=== PATIENT | male | born 1975 | race Caucasian/White ===

== ENCOUNTER 2017-02-08 22:01 | Emergency (ER) | payer OTHER ==
--- NOTE | 2017-02-08 23:40 | DIAGNOSTIC IMAGING REPORT ---
PROCEDURE: XR LUMBAR SPINE 2 OR 3 VIEWS INDICATION: TRAUMA/INJURY TECHNIQUE: Three views. COMPARISON: None. FINDINGS: Mild degenerative changes of the lower lumbar facet joints. Osseous structures and disc spaces are otherwise normal. No evidence of an acute process or fracture. IMPRESSION: 1. Mild degenerative changes. 2. Otherwise negative lumbar spine.
--- NOTE | 2017-02-08 23:40 | DIAGNOSTIC IMAGING REPORT ---
PROCEDURE: XR HIP 2VW W W/O AP PELVIS-LT INDICATION: Pain. TECHNIQUE: AP view of the pelvis and hips with lateral view of the left hip. COMPARISON: None. FINDINGS: LEFT HIP: Mild degenerative changes of the left hip joint with small peripheral osteophytes. PELVIS: Pelvis and right hip are normal. IMPRESSION: 1. Mild degenerative changes of the left hip joint. 2. Negative pelvis.
--- NOTE | 2017-02-09 00:04 | ED ORDER SUMMARY ---
..... Patient: RUDDY ARCINIEGA OrderSheet [facility] VisitID: [id number] [place] [address] 41y, M Registration Date/Time: 02/08/2017 ORDER SHEET Weight: 104.3 kg (stated) Allergies: Amoxicillin GENERAL ORDERS: Lumbar Spine 2 or 3V Urgent (23:02/08/2017 Marilee Caldwell) (Ack 23:02 [facility] Technician) (23:21 RFay) Hip 2V Left w AP Pelvis Urgent (23:02/08/2017 Marilee Caldwell) (Ack 23:02 [facility] Technician) (23:21 RFay) MEDICATION ORDERS: Percocet PO 5/325 mg (HIGH ALERT MEDICATION, NOW) (23:02/08/2017 Marilee Caldwell) (Ack 23:11 JQuivey R.N.) (23:27 JQuivey R.N.) IV FLUIDS: ORDER SHEET NOTES: [Electronically signed by Fercho Chen R.N. (00:20 02/09/2017)] [Electronically signed by Adair Morton Dr. (15:56 02/11/2017)] [Electronically locked/signed by Fercho Chen R.N. (00:20 02/09/2017)]
--- NOTE | 2017-02-09 00:04 | ED NURSING NOTES ---
Clinical Report - Nurses [facility] [address] [place] [address] 02/08/2017 22:02 Patient: RUDDY ARCINIEGA TRIAGE Triage time 22:37. Acuity: LEVEL 4. 22:43. Alert. SEPSIS SCREEN: Sepsis Screen. Negative (no infection suspected/documented). --22:43 Fercho Chen R.N. 22:37 02/08/17. BP: 139/93. HR: 95. RR: 16. O2 saturation: 99%. Temp: 97.9 F (oral). --22:43 Fercho Chen R.N. Chief Complaint: (Back pain). --00:19 Fercho Chen R.N. Weight: 104.3 kg stated. Height/Length: 68 inches Per Patient. BMI: 35. --22:43 Fercho Chen R.N. Medications ALPRAZolam Oral 0.5 mg, as needed. --22:42 Fercho Cehn R.N. Medication/allergy information source: the patient. --22:43 Fercho Chen R.N. Allergies Amoxicillin. --22:41 Fercho Chen R.N. History Arrived by private vehicle, and unaccompanied. Location of injuries: back, left buttock and left hip. This occurred (about 1030 THIS MORNING). ( Patient states he was running landed on his left foot when leaping off curb and felt a sudden pain in his left hip that moved in to his mid lower back). Trauma activation: Pre-hospital notification of patient arrival was not received. PAST MEDICAL HX: Tetanus status: up-to-date. Immunizations: up-to-date. SOCIAL HX: Never smoker. History of occasional drug use: marijuana. No alcohol use. No infectious disease exposure. ABUSE ASSESSMENT: No report of abuse. FALL RISK ASSESSMENT: Fall risk assessment completed. No fall risk identified. NUTRITIONAL RISK ASSESSMENT: The nutritional risk assessment revealed no deficiencies. FUNCTIONAL ASSESSMENT: Functional assessment: no impairments noted. LEARNING NEEDS ASSESSMENT: The learning needs assessment revealed no barriers. SKIN INTEGRITY ASSESSMENT: Skin integrity risk assessment completed. No skin integrity risk identified. --22:43 Fercho Chen R.N. PROBLEMS: no known problems. ADDITIONAL SURGERIES: Hip Surgery. --22:42 Fercho Chen R.N. Interventions ID band on patient. To treatment room. --22:43 Fercho Chen R.N. PHYSICAL ASSESSMENT 22:44. Ambulatory to room. GENERAL / NEURO / PSYCH: Alert. Oriented X 4. RESPIRATORY: Respirations not labored. EXTREMITIES: Neuro-vascular status intact to the extremity. SKIN: Skin intact. Skin is warm and dry. --22:44 Fercho Chen R.N. NURSING PROGRESS NOTES 22:44. Two patient identifiers checked. Call light placed in reach. Bed placed in lowest position. Brakes of bed on. Patient ready for evaluation- chart flagged. --22:44 Fercho Chen R.N. 23:09. Patient transported to radiology by stretcher with tech. --23:14 Fercho Chen R.N. 23:27 02/08/2017 Percocet (Oxycodone-Acetaminophen) PO 5/325 mg Tablets 1 tab given. Allergies verified, confirmed 5 rights and sedative warning given to the patient. --23:27 Fercho Chen R.N. 23:23. Patient returned from radiology by stretcher with tech. --23:27 Fercho Chen R.N. 00:11 02/09/2017 Percocet (Oxycodone-Acetaminophen) PO 5/325 mg Tablets 1 tab given. Allergies verified, confirmed 5 rights and sedative warning given to the patient. (per Dr. Morton verbal order). --00:12 Fercho Chen R.N. 00:14 Patient 's spouse at bedside. The patient is calm and resting quietly. Overall patient status is improved- he states feels better. GENERAL / NEURO / PSYCH: Alert. Oriented X 4. RESPIRATORY: No respiratory distress. SKIN: Skin is warm and dry. --00:18 Fercho Chen R.N. DISPOSITION / DISCHARGE Departure time: 00:17. Condition at departure: stable. No learning barriers present. Discharge instructions provided and reviewed with the patient and spouse. Reviewed medication(s) side effects, precautions, dosing and course information. Prescription(s) given to the patient. Patient and spouse verbalized understanding. Written instructions provided in Ukrainian. The patient was discharged home and accompanied by spouse. He left the Emergency Department ambulatory and via private vehicle. Spouse driving. FALL RISK ASSESSMENT: Fall risk assessment completed. No fall risk identified. --00:17 Fercho Chen R.N. 00:10 02/09/17. BP: 110/66. HR: 81. RR: 16. O2 saturation: 95% on room air. Pain level now: 01/08. --00:17 Fercho Chen R.N. Locked/Released at 02/09/2017 0:20 by Fercho Chen R.N.
--- NOTE | 2017-02-09 00:04 | ED ORDER SUMMARY ---
..... Patient: RUDDY ARCINIEGA OrderSheet [facility] VisitID: [id number] [place] [address] 41y, M Registration Date/Time: 02/08/2017 ORDER SHEET Weight: 104.3 kg (stated) Allergies: Amoxicillin GENERAL ORDERS: Lumbar Spine 2 or 3V Urgent (23:02/08/2017 Marilee Caldwell) (Ack 23:02 [facility] Dam[facility] Worker) (23:21 RFay) Hip 2V Left w AP Pelvis Urgent (23:02/08/2017 Marilee Caldwell) (Ack 23:02 [facility] Worker) (23:21 RFay) MEDICATION ORDERS: Percocet PO 5/325 mg (HIGH ALERT MEDICATION, NOW) (23:02/08/2017 Marilee Caldwell) (Ack 23:11 JQuivey R.N.) (23:27 JQuivey R.N.) IV FLUIDS: ORDER SHEET NOTES: [Electronically signed by Fercho Chen R.N. (00:20 02/09/2017)] [Electronically signed by Adair Morton Dr. (15:56 02/11/2017)] [Electronically locked/signed by Fercho Chen R.N. (00:20 02/09/2017)]
--- NOTE | 2017-02-09 00:04 | ED CLINICAL REPORT ---
Clinical Report - Physicians/Mid Levels [facility] [address] [place] [address] 02/08/2017 22:02 Patient: RUDDY ARCINIEGA Time Seen: 2251. Arrived- By private vehicle. Historian- patient. HISTORY OF PRESENT ILLNESS Chief Complaint: BACK PAIN. Modifying factors- worsened by bending over. Relieved by sitting. Onset was today and it is still present. It was abrupt in onset and has been constant but is not gone now. It is described as being moderate in degree. The quality is noted to be sharp and aching. No radiation. No bladder dysfunction, bowel dysfunction, sensory loss or motor loss. Additional history - no fever, no urinary retention, no hx of IV drug use. Patient notes the possibility of an injury but denies injury to the head or neck. Mechanism of injury- (stepping off curb). (work). No other injury. Similar symptoms previously: None. Recent medical care: Not recently seen/assessed. REVIEW OF SYSTEMS All systems otherwise negative, except as recorded above. PAST HISTORY See nurses notes. Problems: no known problems. Medications: ALPRAZolam Oral 0.5 mg, as needed. Allergies: Amoxicillin. SOCIAL HISTORY Never smoker. History of occasional drug use: marijuana. No alcohol use. No recent travel. Is a local resident. PHYSICAL EXAM Appearance: Alert. Patient in mild distress. (non-toxic). HEENT: Normal external inspection. Eyes: Pupils equal, round and reactive to light. ENT: Ears normal. Pharynx normal. Neck: Normal inspection. Neck nontender. No muscle spasm or decreased ROM in the neck. Painless ROM. No vertebral tenderness. No lymphadenopathy. CVS: Heart sounds normal. Pulses normal. Respiratory: No respiratory distress. Breath sounds normal. Abdomen: No visible injury. Soft and nontender. Bowel sounds normal. Mass present. Back: Normal inspection. (bilateral lower paraspinal muscle tenderness. Mild midline tenderness without crepitus, step offs, or myrna abnormalities.). Skin: Skin warm and dry. Normal skin color. No rash. Normal skin turgor. Extremities: Extremities exhibit normal ROM. Extremities nontender. Neuro: Mood/affect normal. No motor deficit. No sensory deficit. Reflexes normal. (normal gait). LABS, X-RAYS, AND EKG LS-Spine X-rays: (PROCEDURE: XR LUMBAR SPINE 2 OR 3 VIEWS INDICATION: TRAUMA/INJURY TECHNIQUE: Three views. COMPARISON: None. FINDINGS: Mild degenerative changes of the lower lumbar facet joints. Osseous structures and disc spaces are otherwise normal. No evidence of an acute process or fracture. IMPRESSION: 1. Mild degenerative changes. 2. Otherwise negative lumbar spine.). The X-rays were independently viewed by me and interpreted by the radiologist. The X-rays were discussed with the radiologist (via pacs). Lt Hip X-ray: (PROCEDURE: XR HIP 2VW W W/O AP PELVIS-LT INDICATION: Pain. TECHNIQUE: AP view of the pelvis and hips with lateral view of the left hip. COMPARISON: None. FINDINGS: LEFT HIP: Mild degenerative changes of the left hip joint with small peripheral osteophytes. PELVIS: Pelvis and right hip are normal. IMPRESSION: 1. Mild degenerative changes of the left hip joint. 2. Negative pelvis.). The X-rays were independently viewed by me and interpreted by the radiologist. The X-rays were discussed with the radiologist (via pacs). PROGRESS AND PROCEDURES Course of Care: he patient is a 41-year-old male with past medical history significant for remoteleft hip injury as a child presenting for evaluation of lower back pain. Patient states that he was at work and stepped off a curb. Patient states that he stepped with his left foot. Patient states that he felt a sharp pain that shot from the left hip up into the lower back. No other red flags on patient's examination except for mild amount of midline tenderness. Patient will be dilated with aradiograph of the lumbar spine. Patient is agreeable to the treatment plan. No signs of neurovascular compromise. We'll also be fighting the patient's left hip cause of his history and reported pain that started there and shot up to his back. Patient is agreeable to the treatment plan. Pain medication provided here in the emergency department. A safe ride home has beensecured by the patient. The patient's workup was remarkable for the findings above. No acute osseous abnormalities noted. Patient's repeat examination is reassuring. No neurovascular compromise. I discussion with the patient in regards to his workup. Emergency department including diagnosis, home care, follow-up, and return precautions. All questions have been answered. The patient expressed understanding of these instructions and was agreeable to them. Disposition: Discharged. Condition: good. CLINICAL IMPRESSION Acute traumatic lumbar back pain associated with sprain. INSTRUCTIONS Warnings: GENERAL WARNINGS: Return or contact your physician immediately if your condition worsens or changes unexpectedly, if not improving as expected, or if other problems arise. SPECIFICALLY, return if you develop weakness, numbness, tingling, pain or incontinence. Your Current Medications: CONTINUE TAKING THE FOLLOWING MEDICATIONS: ALPRAZolam Oral : 0.5 mg, prn. Prescription Medications: Percocet 5 mg/325 mg: take 1 tablet orally every 6 hours as needed for pain. Dispense twelve (12). No refill. Substitution is permissible. OTC Medications: Motrin (available over the counter): take according to label instructions. Follow-up: Return to the emergency department as needed. Follow up with your doctor in three days. Reason for referral: your doctor. Summary of care provided to patient via paper. Screening today revealed the patient's blood pressure to be in the normal range. The patient should follow up with a primary care provider for blood pressure management. Understanding of the discharge instructions verbalized by patient. (Electronically signed by Adair Morton Dr. 02/11/2017 15:56)
--- NOTE | 2017-02-11 15:56 | ED MAR SUMMARY ---
..... Medication Administration Record [facility] [address] [place] [place] [address] Patient: RUDDY ARCINIEGA Visit ID: [id number] 41y, M Weight: 104.3 kg Height/Length: 68 in BMI: 35 ALLERGIES: Amoxicillin Given 23:27 02/08/2017 Fercho Chen, R.N. Medication Administered: PERCOCET [PO] (OXYCODONE-ACETAMINOPHEN), Dose: 1 tab 5/325 mg Tablets PO. Medication Ordered: Percocet PO 5/325 mg (HIGH ALERT MEDICATION, NOW). Given 00:11 02/09/2017 Fercho Chen, R.N. Medication Administered: PERCOCET [PO] (OXYCODONE-ACETAMINOPHEN), Dose: 1 tab 5/325 mg Tablets PO. Medication Ordered: Percocet PO 5/325 mg (HIGH ALERT MEDICATION, NOW).
--- NOTE | 2017-02-11 15:56 | ED MED RECONCILIATION SUMMARY ---
Patient: RUDDY ARCINIEGA Medication Reconciliation Report [facility] VisitID: [id number] [place] [address] 41y, M Registration Date/Time: 02/08/2017 Weight: 104.3 kg Height/Length: 68 in. BMI: 35.0 ALLERGIES: Amoxicillin The patient's Home Medications are listed below: CONTINUE TAKING THE FOLLOWING MEDICATIONS: ALPRAZolam Oral 0.5 mg The source(s) of the original Home Medication information: patient The following Medications were given to the patient in the Emergency Department: Percocet [PO] PO 1 tab, administered: 02/08/2017 11:27:00 PM Percocet [PO] PO 1 tab, administered: 02/09/2017 12:11:00 AM The following Medications were prescribed to the patient: Motrin (available over the counter): take according to label instructions. -- Adair Morton Dr. Percocet 5 mg/325 mg: take 1 tablet orally every 6 hours as needed for pain. Dispense twelve (12). No refill. Substitution is permissible. -- Adair Morton Dr.
--- NOTE | 2017-02-11 15:56 | ED MED RECONCILIATION SUMMARY ---
Patient: RUDDY ARCINIEGA Medication Reconciliation Report [facility] VisitID: [id number] [place] [address] 41y, M Registration Date/Time: 02/08/2017 Weight: 104.3 kg Height/Length: 68 in. BMI: 35.0 ALLERGIES: Amoxicillin The patient's Home Medications are listed below: CONTINUE TAKING THE FOLLOWING MEDICATIONS: ALPRAZolam Oral 0.5 mg The source(s) of the original Home Medication information: patient The following Medications were given to the patient in the Emergency Department: Percocet [PO] PO 1 tab, administered: 02/08/2017 11:27:00 PM Percocet [PO] PO 1 tab, administered: 02/09/2017 12:11:00 AM The following Medications were prescribed to the patient: Motrin (available over the counter): take according to label instructions. -- Adair Morton Dr. Percocet 5 mg/325 mg: take 1 tablet orally every 6 hours as needed for pain. Dispense twelve (12). No refill. Substitution is permissible. -- Adair Morton Dr.
--- NOTE | 2017-02-11 15:56 | ED DISCHARGE INSTRUCTIONS ---
Patient: RUDDY ARCINIEGA General Instructions [facility] VisitID: [id number] [place] [address] 41y, M Registration Date/Time: 02/08/2017 Acute traumatic lumbar back pain associated with sprain. INSTRUCTIONS Warnings: GENERAL WARNINGS: Return or contact your physician immediately if your condition worsens or changes unexpectedly, if not improving as expected, or if other problems arise. SPECIFICALLY, return if you develop weakness, numbness, tingling, pain or incontinence. Your Current Medications: CONTINUE TAKING THE FOLLOWING MEDICATIONS: ALPRAZolam Oral : 0.5 mg, prn. Prescription Medications: Percocet 5 mg/325 mg: take 1 tablet orally every 6 hours as needed for pain. Dispense twelve (12). No refill. Substitution is permissible. OTC Medications: Motrin (available over the counter): take according to label instructions. Follow-up: Return to the emergency department as needed. Follow up with your doctor in three days. Reason for referral: your doctor. Summary of care provided to patient via paper. Screening today revealed the patient's blood pressure to be in the normal range. The patient should follow up with a primary care provider for blood pressure management. Understanding of the discharge instructions verbalized by patient. ADDITIONAL INFORMATION Sciatica Sciatica ("Lumbar Radiculopathy") causes a pain that spreads from the lower back down into the buttock, hip and leg. Sometimes leg pain can occur without any back pain. Sciatica is due to irritation or pressure on a spinal nerve as it comes out of the spinal canal. This is most often due to a bulge or rupture of a nearby spinal disk (the cartilage cushion between each spinal bone), which presses on a nearby nerve. Other causes include spinal stenosis (narrowing of the spinal canal) and spasm of the pyriform muscle (a muscle in the buttocks that the sciatic nerve passes through). Sciatica may begin after a sudden twisting/bending force (such as in a car accident), or sometimes after a simple awkward movement. In either case, muscle spasm is commonly present and contributes to the pain. The diagnosis of sciatica is made from the symptoms and physical exam. Unless you had a physical injury (such as a car accident or fall), X-rays are usually not ordered for the initial evaluation of sciatica because the nerves and disks cannot be seen on an x-ray. If signs of a compressed nerve are present (for example, loss of tendon reflex or strength in the leg), an MRI (magnetic resonance imaging) scan will need to be scheduled as an outpatient. Most sciatica (80-90%) gets better with medicine, exercise, physical therapy. If symptoms continue after at least three months of medical treatment, surgery may be considered. Home Care: You may need to stay in bed the first few days. But, as soon as possible, begin sitting or walking to avoid problems with prolonged bed rest. When in bed, try to find a position of comfort. A firm mattress is best. Try lying flat on your back with pillows under your knees. You can also try lying on your side with your knees bent up towards your chest and a pillow between your knees. Avoid prolonged sitting. This puts more stress on the lower back than standing or walking. Some persons find relief with heat (hot shower, hot bath or heating pad) and massage, while others prefer cold packs (crushed or cubed ice in a plastic bag, wrapped in a towel). Try both and use the method that feels best for 20 minutes several times a day. You may use acetaminophen (Tylenol) or ibuprofen (Motrin, Advil) to control pain, unless another pain medicine was prescribed. [ NOTE: If you have chronic liver or kidney disease or ever had a stomach ulcer or GI bleeding, talk with your doctor before using these medicines.] Be aware of safe lifting methods and do not lift anything over 15 pounds until all the pain is gone. Follow Up with your doctor or this facility if your symptoms do not start to improve after one week. Physical therapy or further testing may be needed. [NOTE: If X-rays were taken, they will be reviewed by a radiologist. You will be notified of any new findings that may affect your care.] Get Prompt Medical Attention if any of the following occur: Pain becomes worse, not controlled by the prescribed medicine Weakness or numbness in one or both legs Numbness in the groin, genital area Loss of bowel or bladder control Oxycodone Hydrochloride, Acetaminophen Oral tablet What is this medicine? ACETAMINOPHEN; OXYCODONE (a set a HILARIO ashkan fen; ox i KOE done) is a pain reliever. It is used to treat mild to moderate pain. How should I use this medicine? Take this medicine by mouth with a full glass of water. Follow the directions on the prescription label. Take your medicine at regular intervals. Do not take your medicine more often than directed. Talk to your tree specialist regarding the use of this medicine in children. Special care may be needed. Patients over 65 years old may have a stronger reaction and need a smaller dose. What side effects may I notice from receiving this medicine? Side effects that you should report to your doctor or health behavioral health care coordinator as soon as possible: allergic reactions like skin rash, itching or hives, swelling of the face, lips, or tongue breathing difficulties, wheezing confusion light headedness or fainting spells severe stomach pain yellowing of the skin or the whites of the eyes Side effects that usually do not require medical attention (report to your doctor or health behavioral health care coordinator if they continue or are bothersome): dizziness drowsiness nausea vomiting What may interact with this medicine? alcohol antihistamines barbiturates like amobarbital, butalbital, butabarbital, methohexital, pentobarbital, phenobarbital, thiopental, and secobarbital benztropine drugs for bladder problems like solifenacin, trospium, oxybutynin, tolterodine, hyoscyamine, and methscopolamine drugs for breathing problems like ipratropium and tiotropium drugs for certain stomach or intestine problems like propantheline, homatropine methylbromide, glycopyrrolate, atropine, belladonna, and dicyclomine general anesthetics like etomidate, ketamine, nitrous oxide, propofol, desflurane, enflurane, halothane, isoflurane, and sevoflurane medicines for depression, anxiety, or psychotic disturbances medicines for sleep muscle relaxants naltrexone narcotic medicines (opiates) for pain phenothiazines like perphenazine, thioridazine, chlorpromazine, mesoridazine, fluphenazine, prochlorperazine, promazine, and trifluoperazine scopolamine tramadol trihexyphenidyl What if I miss a dose? If you miss a dose, take it as soon as you can. If it is almost time for your next dose, take only that dose. Do not take double or extra doses. Where should I keep my medicine? Keep out of the reach of children. This medicine can be abused. Keep your medicine in a safe place to protect it from theft. Do not share this medicine with anyone. Selling or giving away this medicine is dangerous and against the law. Store at room temperature between 20 and 25 degrees C (68 and 77 degrees F). Keep container tightly closed. Protect from light. This medicine may cause accidental overdose and if it is taken by other adults, children, or pets. Flush any unused medicine down the toilet to reduce the chance of harm. Do not use the medicine after the expiration date. What should I tell my health care provider before I take this medicine? They need to know if you have any of these conditions: brain tumor Crohn's disease, inflammatory bowel disease, or ulcerative colitis drink more than 3 alcohol containing drinks per day drug abuse or addiction head injury heart or circulation problems kidney disease or problems going to the bathroom liver disease lung disease, asthma, or breathing problems an unusual or allergic reaction to acetaminophen, oxycodone, other opioid analgesics, other medicines, foods, dyes, or preservatives or trying to get breast-feeding What should I watch for while using this medicine? Tell your doctor or health behavioral health care coordinator if your pain does not go away, if it gets worse, or if you have new or a different type of pain. You may develop tolerance to the medicine. Tolerance means that you will need a higher dose of the medication for pain relief. Tolerance is normal and is expected if you take this medicine for a long time. Do not suddenly stop taking your medicine because you may develop a severe reaction. Your body becomes used to the medicine. This does NOT mean you are addicted. Addiction is a behavior related to getting and using a drug for a non-medical reason. If you have pain, you have a medical reason to take pain medicine. Your doctor will tell you how much medicine to take. If your doctor wants you to stop the medicine, the dose will be slowly lowered over time to avoid any side effects. You may get drowsy or dizzy. Do not drive, use machinery, or do anything that needs mental alertness until you know how this medicine affects you. Do not stand or sit up quickly, especially if you are an older patient. This reduces the risk of dizzy or fainting spells. Alcohol may interfere with the effect of this medicine. Avoid alcoholic drinks. There are different types of narcotic medicines (opiates) for pain. If you take more than one type at the same time, you may have more side effects. Give your health care provider a list of all medicines you use. Your doctor will tell you how much medicine to take. Do not take more medicine than directed. Call emergency for help if you have problems breathing. The medicine will cause constipation. Try to have a bowel movement at least every 2 to 3 days. If you do not have a bowel movement for 3 days, call your doctor or health behavioral health care coordinator. Do not take Tylenol (acetaminophen) or medicines that have acetaminophen with this medicine. Too much acetaminophen can be very dangerous. Many nonprescription medicines contain acetaminophen. Always read the labels carefully to avoid taking more acetaminophen. You have been given the following additional information: Back Pain W/ Sciatica Oxycodone Hydrochloride, Acetaminophen Oral tablet (Electronically signed by Adair Morton Dr. 02/11/2017 15:56)
--- NOTE | 2017-02-11 15:56 | ED MAR SUMMARY ---
..... Medication Administration Record [facility] [address] [place] [address] Patient: RUDDY ARCINIEGA Visit ID: [id number] 41y, M Weight: 104.3 kg Height/Length: 68 in BMI: 35 ALLERGIES: Amoxicillin Given 23:27 02/08/2017 Fercho Chen, R.N. Medication Administered: PERCOCET [PO] (OXYCODONE-ACETAMINOPHEN), Dose: 1 tab 5/325 mg Tablets PO. Medication Ordered: Percocet PO 5/325 mg (HIGH ALERT MEDICATION, NOW). Given 00:11 02/09/2017 Fercho Chen, R.N. Medication Administered: PERCOCET [PO] (OXYCODONE-ACETAMINOPHEN), Dose: 1 tab 5/325 mg Tablets PO. Medication Ordered: Percocet PO 5/325 mg (HIGH ALERT MEDICATION, NOW).
== END 2017-02-09 00:17 | disposition home or self-care (01) ==
LOC: ED SRH 22:01
DX: S39.012A Strain of muscle, fascia and tendon of lower back, initial encounter (principal); W10.1XXA Fall (on)(from) sidewalk curb, initial encounter; Y93.02 Activity, running; Y99.9 Unspecified external cause status; Y92.480 Sidewalk as the place of occurrence of the external cause; Z88.0 Allergy status to penicillin